=== PATIENT | female | born 2000 | race Caucasian/White ===

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

== ENCOUNTER 2023-08-06 22:47 | Emergency (ER) | payer MEDICAID ==
[~2023-08-06] VITALS: Ht 160 cm; Wt 77.3 kg
[2023-08-06 22:59] VITALS: TEMP 98.8
[2023-08-07 00:01] VITALS: BP 116/79; PULSE 82; RESP 16
[2023-08-07] MEDS ORDERED: KETOROLAC TROMETHAMINE 30 MG/ML VIAL IM ONE (01:00)
[2023-08-07] MEDS ORDERED: IBUP-1492 PO (01:58)
== END 2023-08-07 02:17 | disposition home or self-care (01) ==
LOC: EMS 22:48
DX: S13.4XXA Sprain of ligaments of cervical spine, initial encounter (principal); R51.9 Headache, unspecified; V49.88XA Car occupant (driver) (passenger) injured in other specified transport accidents, initial encounter; Y93.89 Activity, other specified; Y92.89 Other specified places as the place of occurrence of the external cause; Y99.8 Other external cause status
CPT/HCPCS: 99285; 84703; 70450; 96372; J1885